=== PATIENT | male | born 2005 | race Caucasian/White ===

== ENCOUNTER 2025-05-02 14:57 | Emergency (ER) | payer OTHER, SELFPAY ==
--- NOTE | 2025-05-02 15:00 | ED.UPPEXIN ---
HPI - Extremity Injury (Upper) General Chief Complaint: Extremity Injury, Upper Stated Complaint: R Wrist Pain Time Seen by Provider: 05/02/25 15:03 Source: patient Mode of arrival: ambulatory Limitations: no limitations History of Present Illness HPI narrative: 19-year-old male presented for complaint of right wrist pain and swelling. Onset 6 days. Denies injury. 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 Pt reports painful ROM. Says after working today he had more pain and decreased sensation to the middle finger, which has improved. Has not taken anything for pain. Rates pain 3/10 at rest, 7/10 at worst. Related Data Allergies Allergy/AdvReac Type Severity Reaction Status Date / Time No Known Allergies Allergy Unverified 05/02/25 15:09 Review of Systems Review of Systems: CONSTITUTIONAL: Denies body aches, fever, chills EYES: Denies visual changes ENT: Denies rhinorrhea, congestion CARDIOVASCULAR: Denies chest pain, palpitations, or edema. RESPIRATORY: Denies cough or dyspnea. SKIN: Denies rash, itching, or wounds. MUSCULOSKELETAL: reports right wrist pain and swelling NEUROLOGIC: Denies headache, numbness, tingling, or weakness. All systems reviewed & are unremarkable except as noted in HPI and below PMFSH Comments At time of signature, I have reviewed and agree with nursing past medical, surgical, social and family history unless otherwise noted. Please see nursing chart for further information. There is no relevant family history pertinent to the presenting complaint Exam Narrative: GENERAL: Well-appearing CHEST: Speaks in full sentences. No respiratory distress. HEART: Regular rate and rhythm. Normal and equal peripheral pulses. EXTREMITIES: right hand has normal strength and sensation, slightly decreased range of motion with flexion/extension/rotation of wrist due to endorses pain with movement. Mild distal forearm swelling. No ecchymosis, No point tenderness. No open wounds, alignment normal, pulse palpable and equal bilaterally, skin warm, dry, pink. Capillary refill less than 3 seconds. SKIN: Warm, dry, no rash. NEURO: Alert and oriented x3. PSYCH: Normal mood and affect Course Course Emergency Course: Patient is aware of diagnosis, understands and agrees to treatment plan. Anticipatory guidance given. Patient agrees to follow-up as directed and is aware of reasons to seek care at the emergency department. Portions of this record may have been created with voice recognition software Level of Care: Express Care Visit Vital Signs Vital signs: Vital Signs Temperature 97.8 F 05/02/25 15:05 Pulse Rate 73 05/02/25 15:05 Respiratory Rate 16 05/02/25 15:05 Blood Pressure 149/84 H 05/02/25 15:05 Pulse Oximetry 100 05/02/25 15:05 Temperature 97.8 F 05/02/25 15:05 Pulse Rate 73 05/02/25 15:05 Respiratory Rate 16 05/02/25 15:05 Blood Pressure 149/84 H 05/02/25 15:05 Pulse Oximetry 100 05/02/25 15:05 Reviewed MDM - Extremity Injury (Upper) MDM Narrative Medical decision making narrative: Discussed physical exam findings, shared decision-making patient will defer x-ray at this time. Advised supportive measures and signs/symptoms to go to the ER. Pt is appropriate for outpt treatment and f/u. Differential Diagnosis Differential diagnosis: Likely other (sprain/strain of wrist, Colles' fracture, wrist fracture, hand fracture, finger sprain, dislocation of finger, gout, cellulitis, arthritis, tendonitis) Discharge Plan Discharge Clinical Impression: Acute wrist pain Patient Disposition: Home Condition: Stable Instructions: Tendinitis (ED) Additional Instructions: Rest and elevate the right hand, activity as tolerated. Limit lifting, pushing, pulling etc. Apply ice 15-20 minute intervals several times a day Keep it wrapped with ISRA or use a soft wrist splint Motrin 800mg every 8 hours, alternate with Tylenol 1000mg every 8 hours as needed Follow up with your primary care provider as needed in 1 week Go to the ER for worsening symptoms or concerns Patient Language: [place] Prescriptions: New methylprednisolone [Medrol (Yobani)] 4 mg tablets,dose pack See Rx Instructions .ROUTE .COMPLEX Qty: 21 0RF Rx Instructions: orally per package directions Follow-up/Referrals: PHYSICIAN,COIL REPAIR TECHNICIAN [Primary Care Provider] - Time of Disposition: 15:19
[2025-05-02 15:05] VITALS: BP 149/84; PULSE 73; RESP 16; TEMP 36.6; O2SAT 100
== END 2025-05-02 15:28 | disposition home or self-care (01) ==
PROVIDERS: Emergency Provider Nurse Practitioner Family
DX: M25.531 Pain in right wrist (principal)
CPT/HCPCS: 99203; G0463